=== PATIENT | female | born 1955 | race Caucasian/White ===

== ENCOUNTER 2017-09-30 02:03 | Emergency (ER) | payer MEDICAID ==
[2017-09-30 07:02] LABS: ADD MAN DIFF? NO
[2017-09-30] MEDS: morphine 4 MG/ML VIAL IV (07:10)
[2017-09-30] MEDS: METHYLPREDNISOLONE 125 MG INJ IV (07:10)
[2017-09-30] MEDS: ACETAMINOPHEN 500 MG TAB PO (07:10)
[2017-09-30] MEDS: ONDANSETRON 4 MG INJ IV (07:11)
[2017-09-30] MEDS: ALBUTEROL 0.083% (NEB) 2.5 MG/3 ML AMP NEB (07:17)
[2017-09-30 07:22] LABS: BASOPHIL # 0.1 10^3/ul (0.0-0.1); BASOPHILS % 1.5 % (0.0-2.0); EOSINOPHILS # 0.1 10^3/ul (0.0-0.5); EOSINOPHILS % 2.1 % (0.0-7.0); HEMATOCRIT 36.2 % (37.0-47.0); HEMOGLOBIN 12.4 g/dl (12.0-16.0); LYMPHOCYTES # 0.7 10^3/ul (0.8-2.9); LYMPHOCYTES % 9.6 % (15.0-51.0); MEAN CORPUSCULAR HEMOGLOBIN 31.2 pg (29.0-33.0); MEAN CORPUSCULAR HGB CONC 34.3 g/dl (32.0-37.0); MEAN PLATELET VOLUME 9.9 fl (7.4-10.4); NEUTROPHIL # 4.9 10^3/ul (1.6-7.5); NEUTROPHILS % 72.4 % (39.0-77.0); PLATELET COUNT 230 10^3/UL (140-415); RED BLOOD COUNT 3.98 10^6/ul (4.20-5.40); RED CELL DISTRIBUTION WIDTH 12.1 % (11.5-14.5)
[2017-09-30 07:22] LABS: WHITE BLOOD COUNT 6.8 10^3/ul (4.8-10.8)
[2017-09-30 07:25] LABS: ANION GAP 19 (8-16); BLOOD UREA NITROGEN 9 mg/dl (7-20); CALCIUM 8.8 mg/dl (8.4-10.2); CARBON DIOXIDE 24 mmol/L (21-31); CHLORIDE 98 mmol/L (97-110); CREATININE 0.68 mg/dl (0.44-1.00); GLUCOSE 120 mg/dl (70-220); POTASSIUM 3.8 mmol/L (3.5-5.1); SODIUM 137 mmol/L (135-144)
[2017-09-30 07:38] LABS: TROPONIN-I < 0.012 ng/ml (0.00-0.12)
== END 2017-09-30 08:47 | disposition home or self-care (01) ==
LOC: E/R 02:03
DX: J10.1 Influenza due to other identified influenza virus with other respiratory manifestations (principal); J45.909 Unspecified asthma, uncomplicated
CPT/HCPCS: 36415; 71045; 80048; 84484; 85025; 87400; 93005; 94664; 96374; 99285-25

== ENCOUNTER 2018-12-12 21:19 | Emergency (ER) | payer MEDICAID ==
[2018-12-12] MEDS: DEXAMETHASONE 10 MG/ML 1 ML INJ IM (23:00)
[2018-12-12] MEDS: ALBUTEROL 0.083% (NEB) 2.5 MG/3 ML AMP HHN (23:07)
[2018-12-12] MEDS: IPRATROPIUM (NEB) 0.5 MG/2.5 ML AMP HHN (23:07)
== END 2018-12-12 23:30 | disposition home or self-care (01) ==
LOC: FTE 21:19
DX: J45.901 Unspecified asthma with (acute) exacerbation (principal); J30.1 Allergic rhinitis due to pollen
CPT/HCPCS: 94664; 96372; 99284-25

== ENCOUNTER 2019-01-09 16:49 | Emergency (ER) | payer MEDICAID ==
[2019-01-09] MEDS: IPRATROPIUM (NEB) 0.5 MG/2.5 ML AMP NEB (18:03)
[2019-01-09] MEDS: ALBUTEROL 0.5% (NEB) 2.5 MG/0.5 ML AMP NEB (18:04)
[2019-01-09] MEDS: METHYLPREDNISOLONE 125 MG INJ IV (18:07)
== END 2019-01-09 20:05 | disposition home or self-care (01) ==
LOC: FTE 16:49
DX: J45.901 Unspecified asthma with (acute) exacerbation (principal)
CPT/HCPCS: 71045; 94644; 96374; 99284-25

== ENCOUNTER 2019-05-05 09:21 | Emergency (ER) | payer MEDICAID ==
[2019-05-05] MEDS: KETOROLAC 30 MG INJ IM (10:01)
[2019-05-05] MEDS: ACETAMINOPHEN 500 MG TAB PO (10:01)
== END 2019-05-05 11:37 | disposition home or self-care (01) ==
LOC: FTE 09:21
DX: S16.1XXA Strain of muscle, fascia and tendon at neck level, initial encounter (principal); J45.909 Unspecified asthma, uncomplicated; S50.01XA Contusion of right elbow, initial encounter; V43.92XA Unspecified car occupant injured in collision with other type car in traffic accident, initial encounter
CPT/HCPCS: 72050; 73030-RT; 73060-RT; 73080-RT; 73520; 73522; 96372; 99284-25